=== PATIENT | female | born 1945 | race Two or more races ===

== ENCOUNTER 2017-06-12 11:04 | Outpatient (CLI) | payer OTHER | END 2017-06-12 11:14 | disposition home or self-care (01) | LOC: TOM 11:04 | DX: G44.001 Cluster headache syndrome, unspecified, intractable (principal) ==

== ENCOUNTER 2018-02-24 09:22 | Outpatient (CLI) | payer OTHER | END 2018-02-24 09:36 | disposition home or self-care (01) | LOC: RAD 09:22 → MAMO-SONO 10:45 | DX: Z12.31 Encounter for screening mammogram for malignant neoplasm of breast (principal); Z87.898 Personal history of other specified conditions; N60.01 Solitary cyst of right breast; N60.02 Solitary cyst of left breast; J30.0 Vasomotor rhinitis; J32.8 Other chronic sinusitis ==

== ENCOUNTER 2018-03-17 12:35 | Outpatient (CLI) | payer OTHER | END 2018-03-17 12:52 | disposition home or self-care (01) | LOC: NUCLEAR 12:35 | DX: M81.0 Age-related osteoporosis without current pathological fracture (principal) ==

== ENCOUNTER 2020-07-11 12:15 | Outpatient (CLI) | payer OTHER | END 2020-07-11 14:56 | disposition home or self-care (01) | LOC: TOM 12:15 | PROVIDERS: ATTEND Internal Medicine | DX: G93.89 Other specified disorders of brain (principal); S06.0X0A Concussion without loss of consciousness, initial encounter ==

== ENCOUNTER 2020-07-14 08:06 | Outpatient (CLI) | payer OTHER | END 2020-07-14 15:37 | disposition home or self-care (01) | LOC: MAMO-SONO 08:06 | PROVIDERS: ATTEND Internal Medicine | DX: Z12.31 Encounter for screening mammogram for malignant neoplasm of breast (principal); Z87.898 Personal history of other specified conditions; N63.10 Unspecified lump in the right breast, unspecified quadrant; N63.20 Unspecified lump in the left breast, unspecified quadrant ==

== ENCOUNTER 2021-09-07 08:00 | Outpatient (CLI) | payer OTHER | END 2021-09-07 08:30 | disposition home or self-care (01) | LOC: PPH VACUNA 08:00 | PROVIDERS: ATTEND Emergency Medicine Pediatric Emergency Medicine | DX: Z23 Encounter for immunization (principal) ==

== ENCOUNTER 2021-09-20 12:12 | Outpatient (CLI) | payer OTHER | END 2021-09-20 12:19 | disposition home or self-care (01) | LOC: MAMO-SONO 12:12 | PROVIDERS: ATTEND Internal Medicine | DX: Z12.31 Encounter for screening mammogram for malignant neoplasm of breast (principal); N63.0 Unspecified lump in unspecified breast ==

== ENCOUNTER 2022-02-01 09:59 | Outpatient (CLI) | payer OTHER | END 2022-02-01 10:11 | disposition home or self-care (01) | LOC: SONOGRAMA 09:59 | PROVIDERS: ATTEND Internal Medicine | DX: N18.2 Chronic kidney disease, stage 2 (mild) (principal) ==

== ENCOUNTER → 2022-05-31 | Outpatient (CLI) | payer OTHER | END | disposition home or self-care (01) | LOC: RAD 14:06 | PROVIDERS: ATTEND Internal Medicine | DX: N18.9 Chronic kidney disease, unspecified (principal); G43.101 Migraine with aura, not intractable, with status migrainosus; K80.80 Other cholelithiasis without obstruction; K57.30 Diverticulosis of large intestine without perforation or abscess without bleeding; J01.90 Acute sinusitis, unspecified; S06.0X0A Concussion without loss of consciousness, initial encounter; D72.819 Decreased white blood cell count, unspecified; D69.6 Thrombocytopenia, unspecified; D72.810 Lymphocytopenia; Z20.822 Contact with and (suspected) exposure to COVID-19; N18.2 Chronic kidney disease, stage 2 (mild); Q61.3 Polycystic kidney, unspecified; R80.1 Persistent proteinuria, unspecified; H25.813 Combined forms of age-related cataract, bilateral ==

== ENCOUNTER 2022-06-05 12:33 | Outpatient (CLI) | payer OTHER | END 2022-06-05 12:34 | disposition home or self-care (01) | LOC: NUCLEAR 12:33 | PROVIDERS: ATTEND Internal Medicine | DX: M81.0 Age-related osteoporosis without current pathological fracture (principal) ==

== ENCOUNTER 2023-07-30 11:18 | Outpatient (CLI) | payer OTHER | END 2023-07-30 11:25 | disposition home or self-care (01) | LOC: MAMO-SONO 11:18 | PROVIDERS: ATTEND Internal Medicine | DX: N64.4 Mastodynia (principal); Z12.31 Encounter for screening mammogram for malignant neoplasm of breast; R92.8 Other abnormal and inconclusive findings on diagnostic imaging of breast ==